=== PATIENT | female | born 1965 | race Caucasian/White ===

== ENCOUNTER → 2019-10-31 14:21 | Outpatient (BNVA) | payer MEDICARE, MEDICAID, SELFPAY | PROVIDERS: PCP Nurse Practitioner Family; Visit Provider Nurse Practitioner | DX: S96.911A Strain of unspecified muscle and tendon at ankle and foot level, right foot, initial encounter (principal); X58.XXXA Exposure to other specified factors, initial encounter; J06.9 Acute upper respiratory infection, unspecified; R05 Cough | CPT/HCPCS: 71046; 73630 ==

== ENCOUNTER → 2019-11-16 11:37 | Outpatient (BNVA) | payer MEDICARE, MEDICAID, SELFPAY | PROVIDERS: PCP Nurse Practitioner Family; Visit Provider Nurse Practitioner Family | DX: I10 Essential (primary) hypertension (principal); E03.9 Hypothyroidism, unspecified; E78.5 Hyperlipidemia, unspecified; Z79.899 Other long term (current) drug therapy; E55.9 Vitamin D deficiency, unspecified; M25.50 Pain in unspecified joint; J40 Bronchitis, not specified as acute or chronic; R91.1 Solitary pulmonary nodule; R10.9 Unspecified abdominal pain; R05 Cough | CPT/HCPCS: 80053; 80061; 81001; 82306; 83036; 84443; 84550; 85025 ==

== ENCOUNTER 2019-12-01 10:12 | Outpatient (CLI) | payer MEDICARE, MEDICAID, SELFPAY ==
--- NOTE | 2019-12-01 11:00 | US_ITS ---
WS: [id number] ULTRASOUND ABDOMEN CLINICAL INFORMATION: abdominal pain COMPARISON: None. FINDINGS: Liver Size: Mild hepatomegaly Craniocaudal length: 17.8 cm. Echogenicity: Normal. Surface nodularity: None. Mass (size and location): None. Bile ducts Intrahepatic ducts: Normal. Common bile duct diameter: 5.6 mm. Gallbladder Cholecystectomy Pancreas Normal as visualized. Spleen Splenomegaly: Upper limits of normal Craniocaudal length: 11.8 cm. Right kidney: Mild right hydronephrosis Hydronephrosis: Mild right Size: 12.6 cm x 4.8 cm x 5.6 cm Left kidney: Normal. Hydronephrosis: None. Size: 12.4 cm x 5.4 cm x 5.2 cm. Abdominal aorta and IVC Visualized portions are normal. Ascites: None. US/US abdomen complete* [id number] IMPRESSION: 1. Prior cholecystectomy. 2. Mild hepatomegaly. Spleen size upper limits of normal. 3. No intrahepatic biliary duct dilatation. 4. Mild right hydronephrosis.
--- NOTE | 2019-12-01 13:00 | CT_ITS ---
WS: [id number] CT CHEST TECHNIQUE: Noncontrast CT of the chest with coronal and sagittal reformatted images. CLINICAL INFORMATION: lung nodule diagnosed a few years - repeat scan COMPARISON: None. DLP: 735.[address] scans at [facility] use at least one of these dose optimization techniques: automat ed exposure control; mA and/or kV adjustment per patient size (includes targeted exams where dose is matched to clinical indication); or iterative reconstruction. FINDINGS: Mild chronic centrilobular emphysematous change. Again seen is the subpleural noncalcified nodule in the left upper lobe measuring 3 mm. No new nodules. No other suspicious parenchymal abnormalities. In cidental subsegmental atelectasis in the lingula and right middle lobe. No mediastinal or hilar lymphadenopathy. Aortic calcification. Coronary calcification. Prior cholecys tectomy. Chronic anterior wedging T12. CT/CT chest wo con [id number] IMPRESSION: 1. Mild centrilobular emphysematous changes stable. 2. Stable 3 mm subpleural noncalcified nodule left upper lobe. Recommend 12 mo nth follow-up. 3. No new suspicious pulmonary parenchymal abnormalities. 4. No mediastinal or hilar lymphadenopathy.
== END 2019-12-01 10:13 | disposition home or self-care (01) ==
LOC: RAD 10:22
PROVIDERS: PCP Nurse Practitioner Family; Visit Provider Nurse Practitioner Family
DX: J43.2 Centrilobular emphysema (principal); R10.9 Unspecified abdominal pain; R91.1 Solitary pulmonary nodule; R16.0 Hepatomegaly, not elsewhere classified; N13.30 Unspecified hydronephrosis; Z90.49 Acquired absence of other specified parts of digestive tract
CPT/HCPCS: 71250; 76700

== ENCOUNTER 2020-07-26 09:19 | Outpatient (CLI) | payer MEDICARE, MEDICAID, SELFPAY ==
--- NOTE | 2020-07-26 16:45 | MR_ITS ---
WS: [id number] MRI HEAD WITHOUT CONTRAST TECHNIQUE: Sagittal T1, T2 axial, T2 axial FLAIR, axial and coronal T1 images, axial susceptibility w eighted imaging, axial diffusion weighted images, and coronal T2 images were obtained. CLINICAL INFORMATION: R41.82 Altered mental status, unspecified COMPARISON: MRI [address] FINDINGS: No evidence of restricted diffusion to suggest acute ischemia. Ventricular system and basal cisterns are patent. Again seen is a focus of hemosiderin in the right posterior frontal lobe consistent with a focus of prior hemorrhage. This is similar in appearance to the prior MRI measuring 8 mm. Associate d signal in this area on the susceptibility and diffusion weighted images No evidence of recent hemor rhage. Moderate small vessel changes with mild parenchymal volume loss stable since 2018. 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 Normal posterior fossa. Normal vascular flow voids at t he skull base. No extra-axial fluid collections. No evidence of mass or mass effect. Paranasal sinuses and mastoid air cells well aerated. Incidental slightly low-lying cerebellar tonsil s. Normal fourth ventricle. No hydrocephalus. Normal optic chiasm and pituitary infundibulum. Tempora l lobes and hippocampal formations are normal in appearance. MR/MR head wo con* [id number] IMPRESSION: 1. No evidence of restricted diffusion to suggest acute ischemia. 2. Stable chronic focus of hemorrhage in the right posterior frontal lobe unch anged since 2018. No evidence of recent hemorrhage. 3. Moderate small vessel changes. Mild parenchymal volume loss. 4. No extra-axial fluid collections. No evidence of mass or mass effect. 5. Incidental slightly low-lying cerebellar tonsils. 6. Paranasal sinuses and mastoid air cells are well aerated.
== END 2020-07-26 09:20 | disposition home or self-care (01) ==
LOC: RADSHAW 09:23
PROVIDERS: PCP Nurse Practitioner Family; Visit Provider Nurse Practitioner Family
DX: R41.82 Altered mental status, unspecified (principal); R58 Hemorrhage, not elsewhere classified
CPT/HCPCS: 70551

== ENCOUNTER → 2020-08-02 11:20 | Outpatient (BNVA) | payer MEDICARE, MEDICAID, SELFPAY | PROVIDERS: PCP Nurse Practitioner Family; Visit Provider Family Medicine | DX: L91.8 Other hypertrophic disorders of the skin (principal) | CPT/HCPCS: 88304 ==

== ENCOUNTER → 2021-01-06 14:48 | Outpatient (BNVA) | payer MEDICARE, MEDICAID, SELFPAY | PROVIDERS: PCP Nurse Practitioner Family; Visit Provider Nurse Practitioner Family | DX: R06.02 Shortness of breath (principal); M25.562 Pain in left knee; Z96.652 Presence of left artificial knee joint | CPT/HCPCS: 71046; 73562 ==

== ENCOUNTER 2021-01-09 13:27 | Outpatient (CLI) | payer MEDICARE, MEDICAID, SELFPAY ==
[2021-01-09 14:06] LABS: Basophils # 0.1 10^3/uL (0.0-0.1); Basophils % 0.7 %; Eosinophils # 0.1 10^3/uL (0.0-0.8); Eosinophils % 1.5 %; Hemoglobin 13.5 g/dL (11.5-15.3); Lymphocytes # 2.3 10^3/uL (0.8-4.8); Mean Corpuscular HGB Conc 32.1 g/dL (30.0-36.0); Mean Corpuscular Hemoglobin 27.2 pg (28.0-34.0); Mean Corpuscular Volume 84.5 fL (81-99); Mean Platelet Volume 10.4 fL (7.4-10.4); Monocytes # 0.6 10^3/uL (0.2-0.9); Monocytes % 8.2 %; Neutrophils # 4.34 10^3/uL (1.8-7.7); Neutrophils % 58.2 %; Nucleated Red Blood Cells % 0 %; Platelet Count 293 10^3/cmm (130-400); Red Blood Count 4.97 10^6/uL (4.1-5.3); Red Cell Distribution Width 13.5 % (12.1-15.1); White Blood Count 7.5 10^3/uL (4.0-10.0)
[2021-01-10 17:33] LABS: Alternaria Alternata (M6) Ige <0.10 kU/L; Alternaria Class 0; Bermuda Class 0; Bermuda Grass (G2) Ige <0.10 kU/L; Cat Dander (E1) Ige <0.10 kU/L; Cat Dander Class 0; Common Ragweed (Short) (W1) Ig <0.10 kU/L; D. Farinae Class 0; Dermatophagoides Class 0; Dermatophagoides Farinae (D2) <0.10 kU/L; Dermatophagoides Pteronyssinus <0.10 kU/L; Dog Dander (E5) Ige <0.10 kU/L; Dog Dander Class 0; Elm (T8) Ige <0.10 kU/L; Elm Class 0; English Plantain (W9) Ige <0.10 kU/L; English Plantain Class 0; House Dust (Greer) (H1) Ige <0.10 kU/L; House Dust (Hollister- Stier) <0.10 kU/L; House Dust Class 0; Immunoglobulin E 20 kU/L (<OR=114); Immunoglobulin E 23 kU/L (<OR=114); Johnson Grass (G10) Ige <0.10 kU/L; Johnson Grass Cl 0; June Grass Class 0; June Grass(Kentucky Blue) (G8) <0.10 kU/L; Lamb'S Quarters (Goose Foot) <0.10 kU/L; Lamb'S Quarters Class 0; Maple (Box Elder) (T1) Ige <0.10 kU/L; Maple Class 0; Meadow Fescue (G4) Ige <0.10 kU/L; Meadow Fescue Class 0; Mucor Racemosus Class 0; Oak (T7) Ige <0.10 kU/L; Oak Class 0; Orchard Grass (Cocksfoot) (G3) <0.10 kU/L; Penicillium Class 0; Penicillium Notatum (M1) Ige <0.10 kU/L; Perennial Rye Grass (G5) Ige <0.10 kU/L; Perennial Rye Grass Class 0; Ragweeed Class 0; Rough Marsh Elder (W16) Ige <0.10 kU/L; Rough Marsh Elder Class 0; Sweet Vernal Class 0; Sweet Vernal Grass (G1) Ige <0.10 kU/L; Timothy Grass (G6) Ige <0.10 kU/L; Timothy Grass Class 0
== END 2021-01-09 13:28 | disposition home or self-care (01) ==
LOC: LAB 13:38
PROVIDERS: PCP Nurse Practitioner Family; Visit Provider Internal Medicine Critical Care Medicine
DX: R06.02 Shortness of breath (principal)
CPT/HCPCS: 36415; 82785; 85025; 86003

== ENCOUNTER → 2021-02-18 15:26 | Outpatient (BNVA) | payer MEDICARE, MEDICAID, SELFPAY | PROVIDERS: PCP Nurse Practitioner Family; Visit Provider Internal Medicine Critical Care Medicine | DX: R05 Cough (principal); Z20.822 Contact with and (suspected) exposure to COVID-19 | CPT/HCPCS: 87635 ==

== ENCOUNTER 2021-08-01 08:13 | Outpatient (CLI) | payer MEDICARE, MEDICAID, SELFPAY ==
[2021-08-01 08:54] VITALS: BMI 37.5
--- NOTE | 2021-08-01 08:54 | NMCV_ITS ---
NM ryan perf SPECT r/s* [id number] Phylicia Kirk Age: 56 Gender: F : 1965 Exam Date: 08/01/2021 09:36 Ordering Phys: Ariel Cade MD Technologist: MARI Crow Exam Location: [facility] Indications: CHEST PAIN STRESS TEST [facility] IMAGE PROTOCOL Rest/Stress 1 Lexiscan Day Radiopharmaceutical Dose (mCi) Administration Site Administered by Rest: Tc-99m 10.7 IV MARI Manriquez Sestamibi Stress:Tc-99m 33.0 IV MARI Manriquez Sestamibi Rest: 01-Aug-2021 60 Discovery 630 Stress: 01-Aug-2021 30 Discovery 630 0.4mg Lexiscan. Images obtained in supine and prone position. SPECT RESULTS Technical Quality: Excellent Raw Data Analysis: Normal Image Corrections: No attenuation or motion correction applied Summed Stress Score: 0 Summed Rest Score: 0 Summed Difference Score: 0 PERFUSION FINDINGS SPECT images demonstrate homogeneous tracer distribution throughout the myocardium. FUNCTIONAL RESULTS (calculated via Gated SPECT) Stress Image LV EF (%): 80 Stress EDV (mL):101 TID: 1.16 Stress ESV (mL):20 Rest Image LV EF (%): 80 FUNCTIONAL FINDINGS: There is normal left ventricular systolic function. IMPRESSIONS Myocardial perfusion imaging is normal. TID ratio is elevated 1.1 which could be secondary to left ventricle hypertrophy/subendocardial ischemia in the absence of other parameters. EKG segment will be documented separately. Nunu Boogie MD (Electronically Signed) Final Date: 03 August 2021 15:56 S
--- NOTE | 2021-08-01 08:54 | ECG_ITS ---
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 The perfusion scan will be documented separately. DATA: Baseline heart rate was 71 beats per minute. Baseline blood pressure was 133/78 millimeters of mercury. Target heart rate was 165. Maximum heart rate achieved was 99. which was 60 % of the predicted target heart rate. Maximum blood pressure was 173/88 millimeters of mercury. The reason for ending the test was completion of the protocol. The patient did not experience any symptoms. ELECTROCARDIOGRAM: BASELINE: Sinus rhythm. Normal axis. Poor R wave progression in the anterior leads most likely lead placement or old anterior wall myocardial infarction EXERCISE: After Lexiscan injection, no ST-T changes suggestive of ischemic noted. No arrhythmia noted. CONCLUSION: Please note due to baseline abnormality of the EKG specificity and sensitivity of the EKG portion of LexiScan MIBI stress test will be low 1. EKG not suggestive of ischemia 2. Lexiscan injection unremarkable. 3. Perfusion scan will be documented separately. Electronically Signed On 08-20-2021 20:09:06 CORRECTIONAL MANAGER by LYLE SAEZ [email or web address]
[2021-08-01] MEDS: regadenoson 0.4 Mg/5 ml Syringe IVP (10:08)
[2021-08-01 10:22] VITALS: BP 133/68; PULSE 81
== END 2021-08-01 08:14 | disposition home or self-care (01) ==
LOC: RAD 08:15 → CDL 08:34
PROVIDERS: PCP Nurse Practitioner Family; Visit Provider Family Medicine
DX: R07.9 Chest pain, unspecified (principal); R06.02 Shortness of breath
CPT/HCPCS: 78452; 93017; A9500; J2785

== ENCOUNTER → 2021-10-08 14:00 | Outpatient (BNVA) | payer MEDICARE, MEDICAID, SELFPAY | PROVIDERS: PCP Nurse Practitioner Family; Visit Provider Family Medicine | DX: R31.9 Hematuria, unspecified (principal) | CPT/HCPCS: 81000 ==